=== PATIENT | male | born 1995 | race American Indian/Alaskan Native ===

== ENCOUNTER 2021-11-27 06:57 | Emergency (ER) | payer SELFPAY ==
[2021-11-27] MEDS ORDERED: LIDOCAINE-MPF (1%) 10 MG/1 ML VIAL 5 ML INFILTRATI ONE (09:36)
--- NOTE | 2021-11-27 09:39 | Emergency Department Report ---
ED General Adult HPI - General Chief complaint: Urogenital-Male Stated complaint: STD SYMPTOMS Time Seen by Provider: 11/27/21 08:48 Source: patient Mode of arrival: Ambulatory Limitations: No Limitations - History of Present Illness Initial comments: 26-year-old -Citizen Of [place] male patient presents with complaints of penile discharge with mild dysuria x2 days. He admits to recent high risk sexual intercourse with an unknown person. He denies any testicular pain/swelling, abdominal pain, swollen painful joints, or fever/chills/sweats. No past medical history per patient. NKDA per patient - Related Data Previous Rx's Medication Instructions Recorded Last Taken Type Doxycycline Monohydrate 100 mg PO BID 7 Days #14 tab 11/27/21 Unknown Rx metroNIDAZOLE [Flagyl] 2,000 mg PO ONCE #4 tab 11/27/21 Unknown Rx Allergies Allergy/AdvReac Type Severity Reaction Status Date / Time No Known Allergies Allergy Verified 11/27/21 06:59 ED Review of Systems ROS: Stated complaint: STD SYMPTOMS Other details as noted in HPI Constitutional: no symptoms reported Gastrointestinal: denies: abdominal pain Genitourinary: dysuria, discharge. denies: testicular pain, testicular mass Skin: denies: rash, lesions, change in color Hematological/Lymphatic: denies: swollen glands ED Past Medical Hx - Past Medical History Previous Medical History?: No - Surgical History Past Surgical History?: No - Medications Home Medications: Home Medications Medication Instructions Recorded Confirmed Last Taken Type Doxycycline Monohydrate 100 mg PO BID 7 Days #14 tab 11/27/21 Unknown Rx metroNIDAZOLE [Flagyl] 2,000 mg PO ONCE #4 tab 11/27/21 Unknown Rx ED Physical Exam - General Limitations: No Limitations General appearance: alert, in no apparent distress - Head Head exam: Present: atraumatic, normocephalic - Eye Eye exam: Present: normal appearance - Respiratory Respiratory exam: Absent: respiratory distress - Cardiovascular Cardiovascular Exam: Present: regular rate, normal rhythm. Absent: systolic murmur, diastolic murmur, rubs, gallop - GI/Abdominal GI/Abdominal exam: Present: soft. Absent: tenderness - Extremities Exam Extremities exam: Present: full ROM - Neurological Exam Neurological exam: Present: alert, oriented X3 - Psychiatric Psychiatric exam: Present: normal affect, normal mood - Skin Skin exam: Present: warm, dry, intact, normal color. Absent: rash ED Course Vital Signs 11/27/21 07:00 Temperature 98.7 F Pulse Rate 58 L Respiratory 17 Rate Blood Pressure 118/69 O2 Sat by Pulse 98 Oximetry ED Medical Decision Making - Medical Decision Making 26-year-old -Citizen Of [place] male patient presents with complaints of penile discharge with mild dysuria x2 days. He admits to recent high risk sexual intercourse with an unknown person. He denies any testicular pain/swelling, abdominal pain, swollen painful joints, or fever/chills/sweats. No past medical history per patient. NKDA per patient Meds given to cover for gonorrhea, chlamydia, trichomonas. Recommend follow-up with health department for further STD testing. Patient also informed to have his partner tested and treated and to refrain from intercourse for 2 to 3 weeks. Discussed in detail signs and symptoms that should prompt immediate return to the ED with patient verbalized understanding Critical care attestation.: If time is entered above; I have spent that time in minutes in the direct care of this critically ill patient, excluding procedure time. ED Disposition Clinical Impression: Penile discharge Disposition: 01 HOME / SELF CARE / HOMELESS Is pt being admited?: No Condition: Stable Instructions: Urethritis, Adult Prescriptions: Doxycycline Monohydrate 100 mg PO BID 7 Days #14 tab metroNIDAZOLE [Flagyl] 2,000 mg PO ONCE #4 tab [facility] - [facility]-5 Days Forms: Work/School Release Form(ED)
[2021-11-27 12:32] LABS: Bilirubin,Urine NEG (Negative); Blood,Urine NEG (Negative); Color,Urine Yellow (Yellow); Mucus,Urine 3+ /HPF; Protein,Urine <15 mg/dL mg/dL (Negative)
[2021-11-27 14:30] VITALS: BP 130/70
== END 2021-11-27 14:30 | disposition home or self-care (01) ==
LOC: ED 06:57
DX: R36.9 Urethral discharge, unspecified (principal); R30.0 Dysuria
CPT/HCPCS: 81001; 99283; J0696; J3490